=== PATIENT | female | born 1995 | race Caucasian/White ===

== ENCOUNTER 2017-08-03 11:13 | Emergency (ER) | payer MEDICAID ==
[~2017-08-03] VITALS: Ht 165.1 cm; Wt 115.0 kg
[2017-08-03 12:37] VITALS: BP 112/60
== END 2017-08-03 15:00 | disposition left against medical advice (07) ==
LOC: ER 11:14
DX: Z53.21 Procedure and treatment not carried out due to patient leaving prior to being seen by health care provider (principal)

== ENCOUNTER 2017-12-07 16:11 | Emergency (ER) | payer MEDICAID ==
[~2017-12-07] VITALS: Ht 165.1 cm; Wt 102.3 kg
[2017-12-07] MEDS ORDERED: ACETAMINOPHEN 325MG TABLET ONE (16:41)
[2017-12-07] MEDS ORDERED: ONDANSETRON HCL 4MG/2ML VIAL IV STA (23:47)
[2017-12-07] MEDS ORDERED: SODIUM CHLORIDE 0.9% 1,000 ML IV ONE (23:47)
[2017-12-08 00:07] LABS: CLARITY URINE TURBID (CLEAR); COLOR URINE DARK YELLOW (YELLOW); KETONES URINE TRACE (NEGATIVE); LEUKOCYTE ESTERASE URINE 1+ (NEGATIVE); NITRITE URINE NEGATIVE (NEGATIVE); OCCULT BLOOD URINE 3+ (NEGATIVE); PROTEIN URINE 3+ (NEGATIVE)
[2017-12-08 00:16] LABS: HEMOGLOBIN. 7.2 g/dL (12.0-16.0); MEAN CORPUSCULAR HEMOGLOBIN 20.3 pg (28.0-32.0); PLATELET 397 x1000/uL (130-400); RED BLOOD CELL COUNT 3.52 mill/uL (4.2-5.4); RED CELL DISTRIBUTION WIDTH 18.8 % (11.6-14.6)
[2017-12-08 00:22] LABS: CHLORIDE 104 mEq/L (98-107)
[2017-12-08 00:24] LABS: INR 1.1
[2017-12-08 00:35] LABS: B-HCG QUANTITATIVE 2 mIU/mL (<3)
[2017-12-08] MEDS ORDERED: ACETAMINOPHEN 325MG TABLET PO ONE (01:00)
[2017-12-08] MEDS ORDERED: CEFTRIAXONE 1 G PREMIX 50 ML IV ONE (02:30)
[2017-12-08] MEDS ORDERED: IOHEXOL-300 100 ML BOTTLE ONE (03:37)
[2017-12-08 04:42] LABS: ATYPICAL LYMPHOCYTES 1; PLATELET ESTIMATE NORMAL
[2017-12-08] MEDS ORDERED: KETOROLAC 30MG/ML VIAL IV ONE (05:00)
[2017-12-08 05:53] VITALS: BP 107/56
== END 2017-12-08 06:20 | disposition home or self-care (01) ==
LOC: ER 16:51
DX: N39.0 Urinary tract infection, site not specified (principal); N13.30 Unspecified hydronephrosis; D72.829 Elevated white blood cell count, unspecified; Z98.890 Other specified postprocedural states
CPT/HCPCS: 36415; 74177; 76856; 80053; 81001; 83690; 84702; 85025; 85610; 87040; 87077; 87086; 87186; 87210; 87804; 93970; 96361; 96365; 96375; 99285; J0696; J1885; J2405; J7030; Q9967; Z7610; 81003

== ENCOUNTER 2019-07-20 14:27 | Emergency (ER) | payer MEDICAID ==
[~2019-07-20] VITALS: Ht 162.6 cm; Wt 102.0 kg
[2019-07-20] MEDS ORDERED: TETANUS, DIPHTHERIA, PERTUSSIS VAC/PF 0.5ML (>7YR OLD) IM ONE (15:45)
[2019-07-20] MEDS ORDERED: BACITRACIN ZINC OINT UDPKT TOP ONE (15:45)
[2019-07-20] MEDS ORDERED: LIDOCAINE 1%/EPI 1:100,000 10 ML VIAL IJ ONE (15:45)
[2019-07-20] MEDS ORDERED: LIDOCAINE HCL/EPINEPHRINE 1%-EPI 1:100,000 20 ML VIAL INFIL SCH (16:04)
[2019-07-20] MEDS ORDERED: BACITRACIN 15GM TUBE TOP NR (16:05)
[2019-07-20 18:32] VITALS: BP 128/60
== END 2019-07-20 18:33 | disposition home or self-care (01) ==
LOC: ER 14:27
DX: S91.312A Laceration without foreign body, left foot, initial encounter (principal); X58.XXXA Exposure to other specified factors, initial encounter; Y93.01 Activity, walking, marching and hiking; Y92.89 Other specified places as the place of occurrence of the external cause; Y99.8 Other external cause status
CPT/HCPCS: 12002; 73630; 81025; 90471; 90715; 99283; J3490

== ENCOUNTER 2019-08-01 11:13 | Emergency (ER) | payer SELFPAY ==
[~2019-08-01] VITALS: Ht 165.1 cm; Wt 117.0 kg
[2019-08-01 11:54] VITALS: BP 120/72
== END 2019-08-01 12:51 | disposition home or self-care (01) ==
LOC: ER 11:42
DX: T14.8XXD Other injury of unspecified body region, subsequent encounter (principal); X58.XXXD Exposure to other specified factors, subsequent encounter
CPT/HCPCS: 99281